=== PATIENT | male | born 1995 | race Caucasian/White ===

== ENCOUNTER 2017-05-19 16:07 | Emergency (ER) | payer BC, OTHER ==
[2017-05-19 16:25] VITALS: TEMP 97.7; BMI 24.3
[2017-05-19 16:47] LABS: BASO % 0.5 % (0-2.0); EOS # 0.3 # (0-4.5); EOS % 3.4 % (0-4.5); LYMPH # 2.3 (8-40); MCH 29.9 pg (25.7-33.7); MCHC 33.9 g/dl (32.0-35.9); MEAN CELL VOLUME 88.1 fl (80-96); MEAN PLT VOLUME 7.3 fl (7.5-11.1); MONO # 0.8 # (3.8-10.2); NEUT # 4.1 # (42.8-82.8); NEUT % 55.1 % (42.8-82.8); PLATELET COUNT 291 K/MM3 (134-434); RDW 12.8 % (11.9-15.9); WHITE BLOOD COUNT 7.5 K/mm3 (4.0-10.0)
[2017-05-19 16:50] LABS: URINE APPEARANCE CLEAR; URINE BILIRUBIN NEGATIVE (NEGATIVE); URINE BLOOD NEGATIVE (NEGATIVE); URINE COLOR YELLOW; URINE GLUCOSE (UA) NEGATIVE (NEGATIVE); URINE KETONE NEGATIVE (NEGATIVE); URINE LEUK ESTERASE NEGATIVE (NEGATIVE); URINE NITRITE NEGATIVE (NEGATIVE); URINE PROTEIN NEGATIVE (NEGATIVE); URINE UROBILINOGEN NEGATIVE mg/dL (0.2-1.0)
--- NOTE | 2017-05-19 17:23 | PDOC ---
History of Present Illness - General Chief Complaint: Pain, Acute Stated Complaint: BACK PAIN/FLANK Time Seen by Provider: 05/19/17 16:49 History Source: Patient Exam Limitations: No Limitations - History of Present Illness Travel History: No Initial Comments: 05/19/17 17:24 22-year-old male with no medical history presents to the emergency department complaining of right lower back pain. Pain is described as 3/10 dull nonradiating intermittent discomfort. The pain is exacerbated on certain movements and alleviated at rest. Patient denies fever, chills, nausea/vomiting , chest pain, shortness of breath, abdominal pains, urinary symptoms: Frequency/ urgency/hesitancy, hematuria. Patient states he was recently seen by his PMD for similar symptoms. Patient had GC chlamydia, testicular ultrasound and a for urology exam and will or benign. Timing/Duration: reports: intermittent Abdominal Pain Onset Location: reports: other (Right lumbar paravertebral) Past History - Past Medical History Allergies/Adverse Reactions: Allergies Allergy/AdvReac Type Severity Reaction Status Date / Time Penicillins Allergy Intermediate Swelling Verified 05/19/17 16:13 Home Medications: Ambulatory Orders Ketorolac Trometh 0.5% Oph Tonya [Acular (Do Not Stock)] 5 ml OS TID #1 dropsbtl 12/07/11 No Home Medications 0 dose .ROUTE UTDICT 12/07/11 Asthma: No COPD: No Diabetes: No HTN: No - Immunization History Td Vaccination: (unknown) TDAP Vaccination: (unknown) Immunization Up to Date: Yes - Suicide/Smoking/Psychosocial Hx Smoking Status: No Smoking History: Never smoked Years of Tobacco Use: 0 Number of Cigarettes Smoked Daily: 0 Cigars Per Day: 0 Information on smoking cessation initiated: No Hx Alcohol Use: Yes (OCCASIONAL) Drug/Substance Use Hx: No Substance Use Type: None Review of Systems - Review of Systems Able to Perform ROS?: Yes Comments:: 05/19/17 17:25 CONSTITUTIONAL: Absent: fever, chills, diaphoresis, generalized weakness, malaise, loss of appetite HEENT: Absent: rhinorrhea, nasal congestion, throat pain, throat swelling, difficulty swallowing, mouth swelling, ear pain, eye pain, visual Changes CARDIOVASCULAR: Absent: chest pain, loss of consciousness, palpitations, irregular heart rate, peripheral edema RESPIRATORY: Absent: cough, shortness of breath, dyspnea with exertion, orthopnea, wheezing, stridor, hemoptysis GASTROINTESTINAL: Absent: abdominal pain, abdominal distension, nausea, vomiting, diarrhea, constipation, melena, hematochezia GENITOURINARY: Absent: dysuria, frequency, urgency, hesitancy, hematuria, flank pain, genital pain MUSCULOSKELETAL: Absent: myalgia, arthralgia, joint swelling SKIN: Absent: rash, itching, pallor HEMATOLOGIC/IMMUNOLOGIC: Absent: easy bleeding, easy bruising, lymphadenopathy, frequent infections Is the patient limited Kazakh proficient: No *Physical Exam - Vital Signs Last Vital Signs Temp Pulse Resp BP Pulse Ox 97.7 F 78 19 152/93 97 05/19/17 16:10 05/19/17 16:10 05/19/17 16:10 05/19/17 16:10 05/19/17 16:10 - Physical Exam Comments: 05/19/17 17:26 GENERAL: Well developed, well nourished. Awake and alert. No acute distress. HEENT: Normocephalic, atraumatic. PERRLA, EOMI. No conjunctival pallor. Sclera are non- icteric. Moist mucous membranes. Oropharynx is clear. NECK: Supple. Full ROM. No JVD. Carotid pulses 2+ and symmetric, without bruits. No thyromegaly. No lymphadenopathy. CARDIOVASCULAR: Regular rate and rhythm. No murmurs, rubs, or gallops. Distal pulses are 2+ and symmetric. PULMONARY: No evidence of respiratory distress. Lungs clear to auscultation bilaterally. No wheezing, rales or rhonchi. ABDOMINAL: Soft. Non-tender. Non-distended. No rebound or guarding. No organomegaly. Normoactive bowel sounds. MUSCULOSKELETAL Normal range of motion at all joints. No bony deformities or tenderness. No CVA tenderness. EXTREMITIES: No cyanosis. No clubbing. No edema. No calf tenderness. SKIN: Warm and dry. Normal capillary refill. No rashes. No jaundice. NEUROLOGICAL: Alert, awake, appropriate. Cranial nerves 2-12 intact. No deficits to light touch and temperature in face, upper extremities and lower extremities. No motor deficits in the in face, upper extremities and lower extremities. Normoreflexic in the upper and lower extremities. Normal speech. Toes are down- going bilaterally. Gait is normal without ataxia. ED Treatment Course - LABORATORY CBC & Chemistry Diagram: 05/19/17 16:30 05/19/17 16:30 - ADDITIONAL ORDERS Additional order review: Laboratory Results 05/19/17 16:11 Urine Color Yellow Urine Appearance Clear Urine pH 5.0 Ur Specific [place] 1.023 Urine Protein Negative Urine Glucose (UA) Negative Urine Ketones Negative Urine Blood Negative Urine Nitrite Negative Urine Bilirubin Negative Urine Urobilinogen Negative 05/19/17 16:30 RBC 4.93 MCV 88.1 MCHC 33.9 RDW 12.8 MPV 7.3 L Neutrophils % 55.1 Lymphocytes % 30.7 Monocytes % 10.3 H Eosinophils % 3.4 Basophils % 0.5 *DC/Admit/Observation/Transfer Diagnosis at time of Disposition: Strain of lumbar spine Qualifiers: Encounter type: initial encounter Qualified Code(s): S39.012A - Strain of muscle, fascia and tendon of lower back, initial encounter - Referrals Referrals: STAFF,NOT ON [Primary Care Provider] - Fady Ramos MD [Staff Physician] - - Patient Instructions Printed Discharge Instructions: DI for Back Strain or Sprain Additional Instructions: Follow up with your physician or the neurologist listed on your discharge: Dr. Ramos [phone] Return to the ER for severe/persistent/worsening symptoms - Post Discharge Activity
[2017-05-19 17:27] LABS: ALBUMIN 4.2 g/dl (3.4-5.0); ANION GAP 6 (8-16); BILIRUBIN,TOTAL 0.7 mg/dL (0.2-1.0); CALCIUM 9.1 mg/dL (8.5-10.1); CO2 29 mmol/L (21-32); GLUCOSE,RANDOM 91 mg/dL (74-106); SGOT/AST 24 U/L (15-37); SGPT/ALT 46 U/L (12-78); TOT PROT 7.1 g/dl (6.4-8.2)
[2017-05-19 17:28] LABS: ALK PHOS 63 U/L (45-117)
[2017-05-19] MEDS ORDERED: KETOROLAC TROMETHAMINE 60 MG/2 ML VIAL IM ONE (17:37)
[2017-05-19] MEDS ORDERED: KETOROLAC TROMETHAMINE 60 MG/2 ML VIAL ONE (18:15)
[2017-05-19 18:55] VITALS: BP 140/82; PULSE 80
[2017-05-19 20:51] LABS: URINE LEUK ESTERASE Negative (NEGATIVE)
== END 2017-05-19 18:45 | disposition left against medical advice (07) ==
LOC: JER 16:07
PROC: 3E0233Z Introduction of Anti-inflammatory into Muscle, Percutaneous Approach (ICD-10-PCS; principal; 2017-05-19)
DX: S39.012A Strain of muscle, fascia and tendon of lower back, initial encounter (principal); X58.XXXA Exposure to other specified factors, initial encounter; Y93.89 Activity, other specified; Y92.89 Other specified places as the place of occurrence of the external cause; Y99.8 Other external cause status
CPT/HCPCS: 36415; 80053; 81003; 85025; 99282-25